=== PATIENT | female | born 1950 | race Caucasian/White ===

== ENCOUNTER 2017-05-26 19:33 | Emergency (ER) | payer SELFPAY ==
[2017-05-26 21:32] VITALS: BP 148/74
== END 2017-05-26 21:32 | disposition home or self-care (01) ==
LOC: ED 19:33
DX: F41.9 Anxiety disorder, unspecified (principal); F32.9 Major depressive disorder, single episode, unspecified; I10 Essential (primary) hypertension; Z88.2 Allergy status to sulfonamides